=== PATIENT | male | born 1980 | race Caucasian/White ===

== ENCOUNTER 2018-06-12 11:03 | Emergency (ER) | payer MEDICAID ==
[~2018-06-12] VITALS: Ht 177.8 cm; Wt 80.0 kg
[~2018-06-12 11:03] MED LIST: LITH450T PO; RISPERDAL PO; TOPI50TA35 PO
[2018-06-12 11:04] VITALS: BP 160/108
== END 2018-06-12 11:46 | disposition home or self-care (01) ==
LOC: ED 11:10
DX: R05 Cough (principal)
CPT/HCPCS: 71046; 99284